=== PATIENT | male | born 1945 | race Caucasian/White ===

== ENCOUNTER 2017-01-31 17:53 | Inpatient (IN) | payer OTHER ==
[~2017-01-31 17:53] MED LIST: GADOBUTROL 10 ML VIAL IVP ONE
[2017-01-31] MEDS ORDERED: DEXAMETHASONE 10 MG/ML VIAL IVP ONE (18:16)
--- NOTE | 2017-01-31 18:22 | EDPHY ---
H & P Stated Complaint: increasing size of brain tumor Time Seen by Provider: 01/31/17 17:55 HPI/ROS: CHIEF COMPLAINT: Confusion HISTORY OF PRESENT ILLNESS: The patient is a 72-year-old man who was referred from [facility] from the MRI machine. 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 Over the last week his family has noticed increased confusion. He was sent by Dr. Xavier for an MRI today on which they have noticed a temporal mass double in size from previous with significant edema and some midline shift. He was told to come here and get Decadron. He denies headache, he denies seizures. REVIEW OF SYSTEMS: Constitutional: denies: chills, fever, recent illness, recent injury EENTM: denies: blurred vision, double vision, nose congestion Respiratory: denies: cough, shortness of breath Cardiac: denies: chest pain, irregular heart rate, lightheadedness, palpitations Gastrointestinal/Abdominal: denies: abdominal pain, diarrhea, nausea, vomiting, blood streaked stools Genitourinary: denies: dysuria, frequency, hematuria, pain Musculoskeletal: denies: joint pain, muscle pain Skin: denies: lesions, rash, jaundice, bruising Neurological: See HPI denies: headache, numbness, paresthesia, tingling, dizziness, weakness Hematologic/Lymphatic: denies: blood clots, easy bleeding, easy bruising Immunologic/allergic: denies: HIV/AIDS, transplant EXAM: GENERAL: Well-appearing, well-nourished and in no acute distress. HEAD: Atraumatic, normocephalic. EYES: Pupils equal round and reactive to light, extraocular movements intact, sclera anicteric, conjunctiva are normal. ENT: TMs normal, nares patent, oropharynx clear without exudates. Moist mucous membranes. NECK: Normal range of motion, supple without lymphadenopathy or JVD. LUNGS: Breath sounds clear to auscultation bilaterally and equal. No wheezes rales or rhonchi. HEART: Regular rate and rhythm without murmurs, rubs or gallops. ABDOMEN: Soft, nontender, normoactive bowel sounds. No guarding, no rebound. No masses appreciated. BACK: No CVA tenderness, no spinal tenderness, step-offs or deformities EXTREMITIES: Normal range of motion, no pitting or edema. No clubbing or cyanosis. 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 Baseline speech, normal gait. 5/5 strength, normal movement in all extremities, normal sensation PSYCH: Normal mood, normal affect. SKIN: Warm, dry, normal turgor, no visible rashes or lesions. Source: Patient Exam Limitations: No limitations - Medical/Surgical History Hx Asthma: No Hx Chronic Respiratory Disease: No Hx Diabetes: No Hx Cardiac Disease: Yes Hx Renal Disease: No Hx Cirrhosis: No Hx Alcoholism: No Hx HIV/AIDS: No Hx Splenectomy or Spleen Trauma: No Other PMH: CABG-X2; 2012;. 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;HTN;Arthritis - Family History Significant Family History: No pertinent family hx - Social History Smoking Status: Never smoked Alcohol Use: Sober Drug Use: None Constitutional: Initial Vital Signs Temperature (C) 36.8 C 01/31/17 18:01 Heart Rate 57 L 01/31/17 18:01 Respiratory Rate 16 01/31/17 18:01 Blood Pressure 152/76 H 01/31/17 18:01 O2 Sat (%) 89 L 01/31/17 18:01 O2 Delivery Mode Room Air Allergies/Adverse Reactions: Jgdqagd-Pah-Gdb Reductase Inhibitor Allergy (Verified 08/23/16 11:51) Home Medications: Medication Instructions Recorded Cholecalciferol (Vitamin D3) 2,000 unit PO DAILY 07/10/12 [Vitamin D-3] Pantoprazole Sodium [Protonix 40mg 40 mg PO BID 07/10/12 (*)] Zolpidem Tartrate [Ambien 5MG (*)] 10 mg PO HS PRN 07/10/12 Cyanocobalamin [Vitamin B12 (*)] 1,000 mcg PO DAILY 08/23/16 Dexamethasone [Decadron 2 MG (*)] 2 mg PO DAILY 08/23/16 Herbals/Supplements -Info Only 1 each PO DAILY 08/23/16 Hydrocodone/APAP 5/325 [[place] 1 tab PO HS PRN 08/23/16 5/325 (*)] Ramipril [Altace 5mg (*)] 10 mg PO DAILY 08/23/16 traMADol [Ultram 50 mg (*)] 50 mg PO DAILY PRN 08/23/16 Metoprolol Tartrate [Lopressor 50 50 mg PO TID #90 tab 08/26/16 mg (*)] Medical Decision Making - Diagnostics EKG Interpretation: An EKG obtained and was read and documented in trace view. Please see trace view for full reading and report. Sinus rhythm, no acute ischemic changes or arrhythmias Imaging Results: Imaging Impressions Brain MRI 01/31/17 17:00 Impression: 1. Right temporal lobe ring-enhancing metastasis, measuring 4 x 2.5 x 3 cm, is increased in size, with increasing vasogenic edema, resulting in leftward subfalcine herniation, 7 mm of left midline shift. 2. Right cerebellar subcentimeter enhancing metastasis again noted, similar in size. 3. No acute infarct or hydrocephalus. Findings and recommendations discussed with Dian Church N.P., at 1734 hours, on January 31, 2017. Final report concurs with initial preliminary interpretation. E:amm A test result has been communicated to a licensed care provider and documented in the [facility] Critical Result system on 01/31/2017 18:04, Message ID [id number]. ED Course/Re-evaluation: 6:25 p.m. I discussed the case with Dr. Murillo and then with Dr. Benavides from Neurosurgery and with Dr. Vishal melendrez. Dr. melendrez will admit to the hospital service and Neurosurgery will consult the morning. Oncology requests Decadron at this time. The would like to hold off on Keppra. Differential Diagnosis: Partial list of the Differential diagnosis considered include but were not limited to; intracranial tumor, edema, infection and although unlikely based on the history and physical exam, I also considered trauma. Critical Care Time: Critical care time spent by me, Dr. Miranda exclusive with this patient was 35 minutes, exclusive of the PA time exclusive of procedures. The organ system that was at risk was neurologic and I gave labs, steroids, consultation and admission to prevent worsening of the patient's condition - Data Points Medications Given: Discontinued Medications Dexamethasone (Decadron Injection) 10 mg IVP EDNOW ONE Stop: 01/31/17 18:17 Last Admin: 01/31/17 18:38 Dose: 10 mg Departure - Departure Disposition: [facility] Inpatient Acute Clinical Impression: Intracranial mass Condition: Fair
[2017-01-31 18:44] LABS: % IMMATURE GRANULYOCYTES 0.6 % (0.0-1.1); ABSOLUTE IMMATURE GRANULOCYTES 0.06 10^3/uL (0.00-0.10); ADD DIFF? NO; ADD MORPH? NO; ADD SCAN? NO; ATYPICAL LYMPHOCYTE FLAG 0 (0-99); FRAGMENT RBC FLAG 0 (0-99); HEMATOCRIT 45.7 % (40.0-51.0); HEMOGLOBIN 15.7 g/dL (13.7-17.5); LEFT SHIFT FLG 0 (0-99); LIPEMIA HEMOLYSIS FLAG 90 (0-99); MEAN CELL HEMOGLOBIN 30.3 pg (27.9-34.1); MEAN CELL HEMOGLOBIN CONCENTR. 34.4 g/dL (32.4-36.7); MEAN CELL VOLUME 88.2 fL (81.5-99.8); PLATELET CLUMPS FLAG 0 (0-99); PLATELET COUNT 220 10^3/uL (150-400); RED BLOOD CELL COUNT 5.18 10^6/uL (4.40-6.38); RED CELL DISTRIBUTION WIDTH 13.2 % (11.5-15.2)
--- NOTE | 2017-01-31 18:50 | CPEKG ---
Heart Rate: 51 RR Interval: 1176 P-R Interval: 156 QRSD Interval: 86 QT Interval: 476 QTC Interval: 439 P [place]: 61 QRS [place]: -16 T Wave [place]: 35 EKG Severity - OTHERWISE NORMAL ECG - EKG Impression: SINUS RHYTHM EKG Impression: BORDERLINE LEFT AXIS DEVIATION Electronically Signed By: Louis Miranda 31-Jan-2017 18:52:49
[2017-01-31 18:51] LABS: ANION GAP 9 mEq/L (8-16); CALCIUM 9.4 mg/dL (8.5-10.4); CARBON DIOXIDE 26 mEq/l (22-31); CHLORIDE 106 mEq/L (97-110); CREATININE 0.9 mg/dL (0.7-1.3); GLOMERULAR FILTRATION RATE > 60; GLUCOSE 94 mg/dL (70-100); POTASSIUM 3.8 mEq/L (3.5-5.2); SODIUM 141 mEq/L (134-144)
[2017-01-31] MEDS ORDERED: ONDANSETRON DISINTEGRATING 4 MG TAB PO PRN (19:24)
[2017-01-31] MEDS ORDERED: ONDANSETRON 4 MG/2 ML VIAL IVP PRN (19:24)
[2017-01-31] MEDS ORDERED: NS 1,000 ML IV SCH (19:30)
--- NOTE | 2017-01-31 20:02 | GHP ---
[f rep st] HISTORY AND PHYSICAL DATE OF ADMISSION: 01/31/2017 CHIEF COMPLAINT: Enlarging intracranial mass. HISTORY OF PRESENT ILLNESS: This is a 72-year-old man with metastatic parotid/valve or salivary gla nd tumor. He had known metastases to his brain and lung. Over the last week, he has been slightly more confused. He denies any headaches, focal weakness or numbness. He has had no falls recently. He is still ambulating. He was brought into [facility] today for hydration, as w ell as antiemetics. He also got an MRI which showed an enlarging temporal lobe mass. Because of th at, he was sent to the ED. He is accompanied by his and son. PAST MEDICAL/SURGICAL HISTORY: 1. 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 2. Coronary artery disease, status post CABG. 3. Hypertension. 4. Hyperlipidemia. 5. Paroxysmal atrial fibrillation due to tumor compressing on part of his heart per his . MEDICATIONS: Please see medication reconciliation. ALLERGIES: Statins. FAMILY HISTORY: None pertinent. SOCIAL HISTORY: Never smoked. Does not drink alcohol. Does not use drugs. REVIEW OF SYSTEMS: A 10-point review of systems is conducted and is negative except per HPI. PHYSICAL EXAMINATION: VITAL SIGNS: Blood pressure 152/76, heart rate 57, respiration rate 16, satu rating 89% on room air. Temperature is 36.8. GENERAL: The patient is a pleasant man who is lying in bed, appears comfortable. HEENT: Shows him to be status post large right-sided parotid gland re section with scar extending up into his scalp, as well as down into his neck. CARDIOVASCULAR: Exam shows a regular rate and rhythm with a 1/6 systolic murmur. PULMONARY: Exam shows lungs clear to auscultation bilaterally. ABDOMEN: Soft, nontender, nondistended. SKIN: Shows no rash. : Exa m shows no Castillo. NEUROLOGIC: Exam shows him to be alert and oriented x3. He has a right-sided fa cial droop due to facial nerve injury. He has a hoarse voice. Motor and sensation are intact in hi s upper and lower extremities. PSYCHIATRIC: Exam shows normal mood and affect. LABORATORY DATA: White count is 9.6. Basic metabolic panel is normal. DATA: 1. ECG, which I personally viewed and interpreted, shows sinus rhythm. 2. Brain MRI, which I personally viewed and interpreted, shows a right-sided temporal mass with sig nificant vasogenic edema with some mild midline shift. 3. I discussed this with Dr. Miranda. Will admit to med/surg. IMPRESSION/PLAN: A 72-year-old man with known metastatic parotid gland cancer who presents with wor sening intracranial metastatic disease. 1. Parotid gland cancer with metastases to lung with worsening intracranial metastases: Appreciate Neurosurgery and Oncology assistance. Will provide Decadron overnight. We will hold off on antiep ileptics at this point per Dr. Grigsby's recommendation. He and his are aware of his overall pr ognosis. They would be open to discussing with Palliative Care; however, per his , they would j ust like to get him home first. 2. Coronary artery disease, status post coronary artery bypass graft: We will continue his medicat ions. Will hold aspirin at this time. 3. Atrial fibrillation: This is paroxysmal per his . She tells me that this is due to tumor c ompressing his " maker artery." I do not think there is anything to do about this right now; lauren bynum is currently in sinus. 4. Previous reaction to steroids: He became very agitated in the past. He takes Valium occasional ly at home. I have added this to his med list. 5. Code status: He is do not resuscitate. 6. Venous thromboembolism risk is high; however, with the enlarging intracranial mass, we will just use SCDs. /[id number]/MODL
[2017-01-31] MEDS: oxyCODONE IR 5 MG TAB PO PRN (23:23)
[2017-01-31] MEDS: DEXAMETHASONE 4 MG/ML VIAL IVP SCH (23:23)
[2017-02-01 05:17] LABS: ALANINE AMINOTRANSFERASE 26 IU/L (21-72); ALBUMIN 3.9 g/dL (3.5-5.0); ALKALINE PHOSPHATASE 79 IU/L (38-126); ANION GAP 12 mEq/L (8-16); ASPARTATE AMINOTRANSFERASE 19 IU/L (17-59); BILIRUBIN,TOTAL 1.1 mg/dL (0.1-1.4); CALCIUM 9.5 mg/dL (8.5-10.4); CARBON DIOXIDE 22 mEq/l (22-31); CHLORIDE 109 mEq/L (97-110); CREATININE 0.7 mg/dL (0.7-1.3); GLOMERULAR FILTRATION RATE > 60; GLUCOSE 133 mg/dL (70-100); POTASSIUM 4.2 mEq/L (3.5-5.2); SODIUM 143 mEq/L (134-144); TOTAL PROTEIN 6.5 g/dL (6.3-8.2)
[2017-02-01 05:28] LABS: % IMMATURE GRANULYOCYTES 0.5 % (0.0-1.1); ABSOLUTE IMMATURE GRANULOCYTES 0.04 10^3/uL (0.00-0.10); ADD DIFF? NO; ADD MORPH? NO; ADD SCAN? NO; ATYPICAL LYMPHOCYTE FLAG 0 (0-99); FRAGMENT RBC FLAG 0 (0-99); HEMATOCRIT 43.3 % (40.0-51.0); HEMOGLOBIN 15.5 g/dL (13.7-17.5); LEFT SHIFT FLG 10 (0-99); LIPEMIA HEMOLYSIS FLAG 90 (0-99); MEAN CELL HEMOGLOBIN 30.9 pg (27.9-34.1); MEAN CELL HEMOGLOBIN CONCENTR. 35.8 g/dL (32.4-36.7); MEAN CELL VOLUME 86.3 fL (81.5-99.8); MEAN PLATELET VOLUME 11.3 fL (8.7-11.7); PLATELET CLUMPS FLAG 0 (0-99); PLATELET COUNT 224 10^3/uL (150-400); RED BLOOD CELL COUNT 5.02 10^6/uL (4.40-6.38); RED CELL DISTRIBUTION WIDTH 13.2 % (11.5-15.2)
[2017-02-01] MEDS: DEXAMETHASONE 4 MG/ML VIAL IVP SCH ×4 (06:25→23:37)
[2017-02-01] MEDS: fentaNYL 75 MCG PATCH TD SCH (09:55)
[2017-02-01] MEDS: PANTOPRAZOLE SODIUM 40 MG TAB PO SCH ×2 (09:55→20:27)
[2017-02-01] MEDS: CHOLECALCIFEROL VIT D3 1,000 UNITS TAB PO SCH (09:55)
[2017-02-01] MEDS: METOPROLOL TARTRATE 50 MG TAB PO SCH ×2 (09:56→20:27)
[2017-02-01] MEDS: RAMIPRIL 5 MG CAP PO SCH (09:56)
--- NOTE | 2017-02-01 10:50 | SOAPPROG ---
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 of prior brain met, S/P XRT to brain 08/30. now with progressive R temporal lobe met. with significant edema and mass effect. His disease in chest /abdomen has shown response to Pembroluzumab thus far, but his QOL has been poor at home over the past month according to his , Zelda at the bedside today due to facial and chest pain. He has spent most of each day in bed with poor Performance Status sleeping or sedated from analgesic requirements. Discussed merits/hazards of Neurosurgical intervention with patient and his and with Dr. Benavides. He may have good Neurosurgical outcome, but the is concerned that his overall QOL and prognosis may weigh against going forward with Neurosurgical resection. IF patient/family decide against Neurosurgical intervention, then I advise a palliative approach with comfort measures/Hospice referral as alternate to surgery, given his past daily functioning/ limited PS/likelihood of deterioration with limited Prognosis in the event his brain tumor is not Neurosurgically excised. Will check back tomorrow as to patient's status and family's thoughts on direction to take. Continue high dose steroids. Plan:See above discussion. 02/01/17 10:43 Subjective: Stable overnight with IV steroids Objective: VSS, afebrile HEENT- R facial droop, anicteric, no oral lesions Neck- supple Chest- clear CVS- RSR, no extra HS ABD- soft, NT, BS+, No mass or HSM or ascites EXT- benign MRI- R temporal mass 4 x 2.5 x 3 cm with ring edema, smaller R cerebellar mass noted also Vital Signs Temp Pulse Resp BP Pulse Ox 36.7 C 71 16 132/78 H 92 02/01/17 08:59 02/01/17 08:59 02/01/17 08:59 02/01/17 08:59 02/01/17 08:59 Laboratory Results 02/01/17 04:27 02/01/17 04:27 01/31/17 02/01/17 02/02/17 05:59 05:59 05:59 Intake Total 610 Balance 610 ICD10 Worksheet Patient Problems: Problems Problem Status Onset Intracranial mass Acute CAD - Coronary arteriosclerosis Active Essential hypertension Active Familial combined hyperlipidemia Active History of placement of stent for coronary artery disease Active Lightheadedness Acute Near syncope Acute Pneumonia Acute
--- NOTE | 2017-02-01 11:25 | GCON ---
[f rep st] CONSULTATION NEUROSURGERY CONSULTATION CHIEF COMPLAINT: Altered mental status and brain tumor. HISTORY OF PRESENT ILLNESS: The patient is a 72-year-old male patient with known metastatic parotid or salivary gland tumor with known metastases to his brain and his lung. Per the medical record an d the patient's , over the past week he became more confused. He denied any headaches, weakness , or numbness, and was brought to [facility] for hydration and antinausea medicati ons. He underwent an MRI which showed enlarging of his temporal lobe mass, and he was then directed to the emergency room. He has been admitted to the hospitalist service, and the neurosurgery servi ce was subsequently consulted given his brain lesions. Currently, the patient is resting in bed. H is is at the bedside. She states that he has been very tired since his admission and course of events yesterday. She reports that his mentation has cleared somewhat today. He is on steroids at this time. She states that her big hope is to get him home. PAST MEDICAL HISTORY: Includes parotid gland cancer with metastases to the brain and lung status po st CyberKnife treatment, coronary artery disease status post CABG, hypertension, hyperlipidemia, atr ial fibrillation. MEDICATIONS: Please see the medication reconciliation. ALLERGIES: Statins. FAMILY HISTORY: Noncontributory. SOCIAL HISTORY: The patient is a nonsmoker. He does not drink alcohol or use drugs. He is . His is at the bedside. REVIEW OF SYSTEMS: Please see above mentioned in the HPI. PHYSICAL EXAMINATION: VITAL SIGNS: Blood pressure 132/78, heart rate 71, respirations 16, O2 sat i s 92% on room air, temperature is 36.7. GENERAL: This is a well-developed, elderly male patient wh o is in no acute distress. He is resting comfortably in bed. He is sleeping on and off. He does a waken easily and follows commands, although he does have some difficulty when I ask him to perform a motor examination with his arms. He does continue to move his legs instead, so I do think he has s ome confusion going on. 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 He recognizes his and is conversant and is aware that he is here in the [facility]. LABORATORY DATA: White blood cells 8.55, red blood cells 5.02, hemoglobin 15.5, hematocrit 43.3, RD W is 13, and platelet count is 224. Chemistry: Sodium is 143, potassium 4.2, chloride 109, carbon dioxide 22, anion gap 12, BUN 16, creatinine 0.7, GFR greater than 60, glucose 133, calcium 9.5, timi irubin 1.1, AST 19, ALT 26, alk phos 79, protein 6.5, albumin 3.9. IMAGING: MRI of the brain with and without contrast. Impression: Right temporal lobe ring-enhanci ng metastasis measuring 4 x 2.5 x 3 cm has increased in size with increasing vasogenic edema, result ing in leftward subfalcine herniation, 7 mm of left midline shift. Right cerebellar subcentimeter e nhancing metastasis again noted, similar in size. No acute infarct or hydrocephalus. IMPRESSION: This is a 72-year-old male patient with known metastasis to the brain with increase in size of brain lesion and also some increased confusion. PLAN: Dr. Benavides and I have both seen the patient and have discussed treatment options with the lucy ent and his . Dr. Benavides plans to discuss further with the patient's oncologist to discuss overa ll prognosis and to determine if any surgical intervention for this right temporal lobe mass would b e indicated. At this time, we will continue the patient on Decadron 4 mg q.6 hours given the edema seen on imaging. While the patient is here, would have him work with physical therapy, occupational therapy, and also speech therapy. Neurosurgery will continue to follow along with this patient. H e may be discharged home later today; and if that were the case, would have him see us as an outpati ent if he and his family wish to pursue any surgical intervention. Please contact the neurosurgery service with any additional questions or concerns. /[id number]/MODL
--- NOTE | 2017-02-01 14:07 | HOSPPROG ---
Hospitalist Progress Note Assessment/Plan: # Aggressive Parotid Gland tumor -with history of prior brain met -S/P XRT to brain 08/30- presenting with worsening quality of life and confusion per MRI brain (personally reviewed and interpreted) progressive R temporal lobe metastasis- with significant edema and mass effect. His disease in chest/abdomen has shown response to Pembroluzumab - started on dexamethasone - NSG consulting and can provide excision if sdesired - Oncology consulting - family actively deciding on desired course of action - PT/OT and ST appropriate # CAD s/p CABG - currently without complaint- oxygen saturations 92% on RA - creatinine 0.8 - cont home meds - monitor closely # HLD - no meds # proph - lovenox contraindicated in setting of intracranial mass # diet - regular # dispo - > 2MN as requires close monitoring and decisions related to NSG intervention I have discussed the case with NSG and Oncolog - cont dexamethasone now and allow family time for decision making related to surgery Subjective: tired Objective: Vital Signs Temp Pulse Resp BP Pulse Ox 36.6 C 72 16 121/82 H 92 02/01/17 11:31 02/01/17 11:31 02/01/17 11:31 02/01/17 11:31 02/01/17 11:31 Laboratory Results 02/01/17 04:27 02/01/17 04:27 01/31/17 02/01/17 02/02/17 05:59 05:59 05:59 Intake Total 610 Balance 610 - Physical Exam Constitutional: chronically ill appearing Eyes: anicteric sclera Ears, Nose, Mouth, Throat: dry mucous membranes Cardiovascular: regular rate and rhythym Respiratory: no respiratory distress, no rales or rhonchi Gastrointestinal: normoactive bowel sounds, soft, non-tender abdomen Genitourinary: no bladder fullness Skin: warm, normal color Musculoskeletal: No asymmetric calves Neurologic: AAOx3 Psychiatric: depressed, flat affect Lymph, Heme, Immunologic: no cervical LAD ICD10 Worksheet Patient Problems: Problems Problem Status Onset Intracranial mass Acute CAD - Coronary arteriosclerosis Active Essential hypertension Active Familial combined hyperlipidemia Active History of placement of stent for coronary artery disease Active Lightheadedness Acute Near syncope Acute Pneumonia Acute
[2017-02-01] MEDS: traMADol 50 MG TAB PO PRN (20:35)
[2017-02-02 07:52] LABS: HEMATOCRIT 40.8 % (40.0-51.0); HEMOGLOBIN 14.4 g/dL (13.7-17.5); MEAN CELL HEMOGLOBIN 30.7 pg (27.9-34.1); MEAN CELL HEMOGLOBIN CONCENTR. 35.3 g/dL (32.4-36.7); RED BLOOD CELL COUNT 4.69 10^6/uL (4.40-6.38); RED CELL DISTRIBUTION WIDTH 13.2 % (11.5-15.2)
[2017-02-02] MEDS: DEXAMETHASONE 4 MG/ML VIAL IVP SCH ×3 (08:13→17:37)
--- NOTE | 2017-02-02 09:51 | NEUSURGPN ---
Assessment/Plan: A: 72 yo M with metastatic parotid tumor with enlarging right temporal metastasis Plan: -Dr Benavides and oncology met with pt yesterday to discuss options. After careful consideration pt and his would like to pursue surgery which would entail right sided craniotomy for tumor resection/debulking -Will need medical/cardiac clearance -Once cleared will determine timing for surgery -Continue decadron 4mg Q6 hours -Continue PT/OT/TOWER ATTENDANT -D/w Dr Benavides -Please call NS with any questions or neuro changes Subjective: Pt resting in bed, at bedside. They wish to schedule surgery Objective: AAOx3 NAD VSS MAEx4 CN II - XII grossly intact Urinary Catheter in Place: No - Physician Discussed Patient with : [facility] Physical Exam - Vitals, I&O, Labs I and O 02/01/17 02/02/17 02/03/17 05:59 05:59 05:59 Other: Intake Quantity Yes Sufficient Vital Signs Temp Pulse Resp BP Pulse Ox 36.3 C 78 14 151/99 H 91 L 02/02/17 08:14 02/02/17 08:14 02/02/17 08:14 02/02/17 08:14 02/02/17 08:14 Laboratory Results 02/02/17 04:33 ICD10 Worksheet Patient Problems: Problems Problem Status Onset Intracranial mass Acute CAD - Coronary arteriosclerosis Active Essential hypertension Active Familial combined hyperlipidemia Active History of placement of stent for coronary artery disease Active Lightheadedness Acute Near syncope Acute Pneumonia Acute
[2017-02-02] MEDS: CHOLECALCIFEROL VIT D3 1,000 UNITS TAB PO SCH (10:06)
[2017-02-02] MEDS: METOPROLOL TARTRATE 50 MG TAB PO SCH ×2 (10:07→21:54)
[2017-02-02] MEDS: RAMIPRIL 5 MG CAP PO SCH (10:07)
[2017-02-02] MEDS: PANTOPRAZOLE SODIUM 40 MG TAB PO SCH ×2 (10:08→21:54)
[2017-02-02] MEDS: levETIRAcetam 500 MG TAB PO SCH ×2 (10:11→21:54)
[2017-02-02] MEDS: traMADol 50 MG TAB PO PRN (10:17)
[2017-02-02] MEDS: oxyCODONE IR 5 MG TAB PO PRN (10:17)
[2017-02-02] MEDS ORDERED: BISACODYL 10 MG SUPP PR PRN (10:36)
[2017-02-02] MEDS ORDERED: MAGNESIUM HYDROXIDE 30 ML UDCUP PO PRN (10:36)
[2017-02-02] MEDS ORDERED: LACTULOSE 20 GM/30 ML UDCUP PO PRN (10:36)
--- NOTE | 2017-02-02 13:09 | HOSPPROG ---
Hospitalist Progress Note Assessment/Plan: # Aggressive Parotid Gland tumor -with history of prior brain met -S/P XRT to brain 08/30- presenting with worsening quality of life and confusion per MRI brain -progressive R temporal lobe metastasis- with significant edema and mass effect. His disease in chest/abdomen has shown response to Pembroluzumab - cont dexamethasone IV - patient desiring resection - NSG tentatively scheduled for 02/04 - Oncology following - PT/OT and ST appropriate # CAD s/p CABG - currently without complaint- oxygen saturations 91% on RA - EKG (personally reviewed and interpreted) sinus leftward axis deviation no acute changes - cont home meds - monitor closely # leukocytosis - 16 this am suspect 2/2 dexamethasone # HLD - no meds # proph - lovenox contraindicated in setting of intracranial mass # diet - regular # dispo - > 2MN as requires close monitoring and decisions related to NSG intervention I have discussed the case with RN - pt responding well to steroids - continue bowel regimen while on narcotics Subjective: thinking much more clearly Objective: Vital Signs Temp Pulse Resp BP Pulse Ox 36.3 C 78 14 151/99 H 91 L 02/02/17 08:14 02/02/17 10:07 02/02/17 08:14 02/02/17 10:07 02/02/17 08:14 Laboratory Results 02/02/17 04:33 - Physical Exam Constitutional: chronically ill appearing Eyes: anicteric sclera Ears, Nose, Mouth, Throat: moist mucous membranes Cardiovascular: regular rate and rhythym Respiratory: no respiratory distress, no rales or rhonchi Gastrointestinal: normoactive bowel sounds, soft, non-tender abdomen Genitourinary: no bladder fullness Skin: warm, normal color Musculoskeletal: No asymmetric calves Neurologic: AAOx3 Psychiatric: interacting appropriately, depressed Lymph, Heme, Immunologic: no cervical LAD ICD10 Worksheet Patient Problems: Problems Problem Status Onset Intracranial mass Acute CAD - Coronary arteriosclerosis Active Essential hypertension Active Familial combined hyperlipidemia Active History of placement of stent for coronary artery disease Active Lightheadedness Acute Near syncope Acute Pneumonia Acute
[2017-02-02] MEDS: SENNOSIDES/DOCUSATE SODIUM TAB PO SCH (23:03)
[2017-02-03] MEDS: ZOLPIDEM TARTRATE 5 MG TAB PO PRN ×2 (01:15→23:03)
[2017-02-03] MEDS: DEXAMETHASONE 4 MG/ML VIAL IVP SCH ×5 (01:15→22:52)
--- NOTE | 2017-02-03 07:44 | SOAPPROG ---
SOAP Progress Note Assessment/Plan: Assessment: 72 yo M with progressive right temporal and cerebellar met, likely parotid tumor Plan: neuro: stable, patient spoke with and son, they would like to move forward with surgery Dr Benavides will try to add on for am of 02/04/17 PT/OT/ST on keppra on decadron please call with neuro changes discussed with Dr Benavides 02/03/17 07:41 Subjective: no headaches, no N/V. Objective: Vital Signs Temp Pulse Resp BP Pulse Ox 37.0 C 68 17 115/65 95 02/02/17 23:22 02/02/17 23:22 02/02/17 23:22 02/02/17 23:22 02/02/17 23:22 Laboratory Results 02/02/17 04:33 02/02/17 02/03/17 02/04/17 05:59 05:59 05:59 Intake Total 1100 Balance 1100 Awake, slow to respond to questions right sided facial droop ABHIJIT x 4 + light touch ICD10 Worksheet Patient Problems: Problems Problem Status Onset Intracranial mass Acute CAD - Coronary arteriosclerosis Active Essential hypertension Active Familial combined hyperlipidemia Active History of placement of stent for coronary artery disease Active Lightheadedness Acute Near syncope Acute Pneumonia Acute
--- NOTE | 2017-02-03 10:04 | HOSPPROG ---
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 His disease in chest/abdomen has shown response to Pembroluzumab - cont dexamethasone IV - patient desiring resection - NSG tentatively scheduled for 02/04 - Oncology following - PT/OT and ST appropriate -Avoid sedatives if possible and consider stimulants if not waking up if ok with neurosurgery # CAD s/p CABG - currently without complaint- oxygen saturations 91% on RA - - cont home meds - monitor closely # leukocytosis on 02/02 likely due to 2/2 dexamethasone -continue to monitor for signs of infection # HLD - no meds # proph - lovenox contraindicated in setting of intracranial mass # diet - regular # dispo - > 2MN as requires close monitoring and decisions related to NSG intervention I have discussed the case with RN Subjective: had a lucid moment last night when he told he would like to proceed with surgery, but would not want to continue living in his current condition. He received a dose of ambien last night and has been hard to arouse since. Objective: Vital Signs Temp Pulse Resp BP Pulse Ox 36.6 C 65 18 140/82 H 95 02/03/17 07:47 02/03/17 07:47 02/03/17 07:47 02/03/17 07:47 02/03/17 07:47 Laboratory Results 02/02/17 04:33 02/02/17 02/03/17 02/04/17 05:59 05:59 05:59 Intake Total 1100 Balance 1100 gen hard to arouse but appears comfortable cv rrr pulm clear no wheeze/rales/ronchi abd soft +bs no guard or rebound ext no edema ICD10 Worksheet Patient Problems: Problems Problem Status Onset CAD - Coronary arteriosclerosis Active History of placement of stent for coronary artery disease Active Familial combined hyperlipidemia Active Essential hypertension Active Lightheadedness Acute Pneumonia Acute Near syncope Acute Intracranial mass Acute
[2017-02-03] MEDS: METOPROLOL TARTRATE 50 MG TAB PO SCH ×2 (10:14→20:33)
[2017-02-03] MEDS: levETIRAcetam 500 MG TAB PO SCH ×2 (10:29→20:32)
[2017-02-03] MEDS: CHOLECALCIFEROL VIT D3 1,000 UNITS TAB PO SCH (10:33)
[2017-02-03] MEDS: PANTOPRAZOLE SODIUM 40 MG TAB PO SCH ×2 (10:33→20:32)
[2017-02-03] MEDS: RAMIPRIL 5 MG CAP PO SCH (10:36)
[2017-02-03] MEDS: SENNOSIDES/DOCUSATE SODIUM TAB PO SCH ×2 (10:37→20:32)
--- NOTE | 2017-02-03 14:46 | SOAPPROG ---
SOAP Progress Note Assessment/Plan: Assessment: 1. 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 I wonder if temporal met could be causing his pain, as noted his disease systemically has been under good control on immunotherapy. 02/03/17 14:43 Subjective: Drowsy but arousable Objective: Vital Signs Temp Pulse Resp BP Pulse Ox 97.8 F 44 L 18 140/82 H 95 02/03/17 07:47 02/03/17 10:14 02/03/17 07:47 02/03/17 10:36 02/03/17 07:47 Laboratory Results 02/02/17 04:33 02/02/17 02/03/17 02/04/17 05:59 05:59 05:59 Intake Total 1100 Balance 1100 ICD10 Worksheet Patient Problems: Problems Problem Status Onset Intracranial mass Acute CAD - Coronary arteriosclerosis Active Essential hypertension Active Familial combined hyperlipidemia Active History of placement of stent for coronary artery disease Active Lightheadedness Acute Near syncope Acute Pneumonia Acute
--- NOTE | 2017-02-03 15:27 | GCON ---
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 He underwent a total parotidectomy with neck dissection in [address] 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 He underwent a couple reinnervation procedures, including a gold weight implant on the right upper eyelid, a brow lift on the right side, as well as a mini right facelift to help with the symmetry. He came in as a referral from [facility] secondary to having an MRI that showed increasing size of a right temporal lobe mass with significant edema and midline shift. The family states that he has been having some increased confusion and lethargy. Neurosurgery was consulted, and Dr. Benavides is planning on doing a resection of this metastasis tomorrow. I was consulted secondary to his approach in relation to a lot of the previous right-sided surgery that he has had. On discussion with the patient, he also has a very breathy, hoarse voice, and they state that he was found to have some lung mets that were found secondary to a decrease in his voice. This basically ended up showing a vocal cord paralysis, and ever since, he has had significant hoarseness and has trouble communicating. He also states he gets shortness of breath when he talks a lot. He denies overt dysphagia. PAST MEDICAL HISTORY: Significant for the above. He has also had radiation therapy. ALLERGIES: None. REVIEW OF SYSTEMS: He denies any significant pain, and he does complain of the other HPI complaints. PHYSICAL EXAM: GENERAL: He is awake, alert, in no apparent distress. 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 He has a gold weight implant on the right upper lid, which allows him to close the eye fully. He also has multiple scars along the right side of the face including a previous parotidectomy incision, a brow lift incision, as well as incisions down into the neck. He also has a defect where the right parotid was. His ears are clear with TMs that are intact. No hemotympanum or middle ear effusion. Nose shows collapse of the right nare, but otherwise is symmetric. Oral cavity and oropharynx shows a tongue that is mobile. Palate elevates symmetrically. NECK: Shwos some post radiation changes as well as surgical changes, but no overt neck masses. PROCEDURE: A flexible fiberoptic laryngoscopy was performed after spraying about 1 cc of oxymetazoline and lidocaine into the bilateral nares. Once this had sufficient time to act, the scope was placed through the left nare showing a normal left nasal cavity and nasopharynx. Oropharynx was symmetric. The vallecula was clear. Vocal cords show complete mobility of the right side, but complete immobility of the left side. This leaves him with a fairly large gap. Hypopharynx is without pooling or secretions. Otherwise, exam is clear. The scope was removed. He tolerated this procedure well. 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 He has some metastases to the brain and is undergoing surgery to remove the temporal lobe mass tomorrow. I do not think that the temporal approach is going to cause any problems. He is already completely paralyzed on the right side, and it would be fine to use the same incision, if Dr. Benavides would like. I do think that while he is in surgery, it would be reasonable to go ahead and do a vocal cord injection on that left side, and I talked to the family about this. I think this would help his quality of life significantly to help him communicate better , as well as feel less short of breath when he is talking. They do want to go ahead and proceed with this, so informed consent was obtained, and this was placed in the chart. I talked to Dr. Benavides, and I will go ahead and do this at the same time that he is asleep for the temporal lobe resection. All questions were answered. If you have any further questions, please let me know. /[id number]/MODL MTDD
[2017-02-03] MEDS: traMADol 50 MG TAB PO PRN (20:32)
[2017-02-03] MEDS ORDERED: GADOBUTROL 10 ML VIAL IVP ONE (20:49)
[2017-02-03] MEDS: NS W/ 20 KCl/L 1,000 ML IV SCH (22:51)
[2017-02-04] MEDS: DEXAMETHASONE 4 MG/ML VIAL IVP SCH (05:27)
--- NOTE | 2017-02-04 05:47 | NEUSURGPN ---
Assessment/Plan: Assessment: 72 yo M with progressive right temporal and cerebellar met, likely parotid tumor Plan: neuro: stable, Will have surgery this morning with Dr. Benavides for resection of tumor Stealth MRI completed Marked for surgery Preop orders in Labs reviewed- High WBC count this morning- 16 PT/OT/ST on keppra on decadron please call with neuro changes discussed with Dr Benavides Subjective: No new events. Patient ready for surgery. Objective: VSS, NAD, Right sided facial droop PERRl, EOMI DUGGAN X 4 Speech- fluent but raspy - Physician Discussed Patient with Dr.: Benavides Patient Seen by Dr.: Benavides Neurosurgery Physical Exam - Vitals, I&O, Labs I and O 02/02/17 02/03/17 02/04/17 05:59 05:59 05:59 Intake Total 1100 485 Output Total 500 Balance 1100 -15 Intake: Oral (ml) 1100 IV Intake (ml) 485 Output: Urine (ml) 500 Toilet 500 Other: Intake Quantity Yes Sufficient Number of Voids Toilet 1 Vital Signs Temp Pulse Resp BP Pulse Ox 36.4 C 52 L 16 119/61 93 02/04/17 00:00 02/04/17 00:00 02/04/17 00:00 02/04/17 00:00 02/04/17 00:00 Laboratory Results 02/02/17 04:33 ICD10 Worksheet Patient Problems: Problems Problem Status Onset Intracranial mass Acute CAD - Coronary arteriosclerosis Active Essential hypertension Active Familial combined hyperlipidemia Active History of placement of stent for coronary artery disease Active Lightheadedness Acute Near syncope Acute Pneumonia Acute
[2017-02-04] MEDS ORDERED: BUPIVACAINE/EPI 0.25% 30 ML SDV ONE (06:47)
[2017-02-04] MEDS ORDERED: SURGIFLO MATRIX KIT WITH THROMBIN TP ONE (06:49)
[2017-02-04] MEDS ORDERED: AVITENE POWDER 1 GM JAR TP ONE (06:50)
[2017-02-04] MEDS ORDERED: GENTAMICIN SULFATE 80 MG/2 ML VIAL ONE (06:50)
[2017-02-04] MEDS ORDERED: THROMBIN (BOVINE) 5,000 UNIT VIAL TP ONE ×2 (06:50→07:18)
[2017-02-04] MEDS ORDERED: MANNITOL 20% 100 GM/500 ML BAG IV ONE (06:50)
[2017-02-04] MEDS ORDERED: BACITRACIN 50,000 UNITS/10 ML SYR IRR ONE (07:01)
[2017-02-04] MEDS ORDERED: CEFAZOLIN 2 GM/DEXTROSE/100 ML BAG IV ONE (07:09)
[2017-02-04] MEDS ORDERED: MIDAZOLAM 2 MG/2 ML VIAL ONE (07:09)
[2017-02-04] MEDS ORDERED: PROPOFOL 200 MG/20 ML VIAL ONE ×2 (07:11→10:49)
[2017-02-04] MEDS ORDERED: fentaNYL 250 MCG/5 ML INJ ONE ×2 (07:11→08:34)
[2017-02-04] MEDS ORDERED: levETIRAcetam 750 MG in NS 100 ML IV ONE (09:00)
[2017-02-04 09:02] LABS: BASE EXCESS -0.8 mEq/L (-2.5-2.5); BICARBONATE 22 mEq/L (22-26); MEASURED OXYGEN SATURATION 100 % (92-95); PCO2 34 mmHg (34-38); PO2 224 mmHg (65-75); TCO2 23 mEq/L (23-27)
[2017-02-04] MEDS ORDERED: ROCURONIUM 50 MG/5 ML VIAL ONE ×2 (10:52→10:59)
[2017-02-04] MEDS ORDERED: OXYCODONE/APAP 5/325 TAB PO PRN (10:57)
[2017-02-04] MEDS ORDERED: FLUCONAZOLE 150 MG TAB PO ONE (10:57)
[2017-02-04] MEDS ORDERED: HYDROCODONE/APAP 10/325 TAB PO PRN (10:57)
[2017-02-04] MEDS ORDERED: ESMOLOL HCL 100 MG/10 ML VIAL IV ONE (10:59)
[2017-02-04] MEDS ORDERED: ONDANSETRON 4 MG/2 ML VIAL ONE (10:59)
[2017-02-04] MEDS ORDERED: LIDOCAINE 2% 5 ML SDV ONE (10:59)
[2017-02-04] MEDS ORDERED: *MD ORDERING ONLY-DEXAMETHASONE TAPER PO SCH (11:00)
[2017-02-04] MEDS ORDERED: DEXAMETHASONE 4 MG/ML VIAL ONE ×3 (11:03)
--- NOTE | 2017-02-04 11:18 | POSTOPPROG ---
Post Op Note Date of Operation: 02/04/17 Surgeon: Donny Benavides Dorr Operator: Latha Pruitt PA-C Anesthesia: GET(General Endotracheal) Pre-op Diagnosis: Right temporal brain tumor. Likely metastatic Post-op Diagnosis: Same Procedure: Right temporal craniotomy for resection for right temporal brain tumor Inf/Abcess present in the surg proc area at time of surgery?: No EBL: 50-100 Complications: None SOAP Progress Note Assessment/Plan: S: Patient in ICU. Stable O: VSS, NAD PERRL, EOMI right facial droop- same as preop DUGGAN X4 Incision c/d/i Assessment: 72 yo M with progressive right temporal and cerebellar met, likely parotid tumor. S/P right temporal craniotomy for resection of right temporal brain tumor. Also had vocal cord injection by ENT after craniotomy. Plan: -Admit to ICU -Postop MRI in the am -Decadron taper- 14 day -On Keppra -PT/OT/DIRECTOR OF SAFETY -Final path pending -Diflucan X [address] Andres ENT -DVT prophy: TEDs, SCDs, Lovenox ok POD #3 02/04/17 11:14 Objective: Vital Signs Temp Pulse Resp BP Pulse Ox 36.8 C 52 L 16 135/74 H 91 L 02/04/17 05:48 02/04/17 05:48 02/04/17 05:48 02/04/17 05:48 02/04/17 05:48 Laboratory Results 02/02/17 04:33 02/03/17 02/04/17 02/05/17 05:59 05:59 05:59 Intake Total 1100 485 Output Total 700 300 Balance 1100 -215 -300
[2017-02-04] MEDS: METOPROLOL TARTRATE 50 MG TAB PO SCH ×2 (11:24→19:56)
[2017-02-04] MEDS: fentaNYL 75 MCG PATCH TD SCH ×2 (11:24→16:13)
[2017-02-04] MEDS: levETIRAcetam 500 MG TAB PO SCH ×2 (11:24→19:55)
[2017-02-04] MEDS: PANTOPRAZOLE SODIUM 40 MG TAB PO SCH ×2 (11:24→19:57)
[2017-02-04] MEDS: RAMIPRIL 5 MG CAP PO SCH (11:24)
[2017-02-04] MEDS: CHOLECALCIFEROL VIT D3 1,000 UNITS TAB PO SCH (11:24)
[2017-02-04] MEDS: SENNOSIDES/DOCUSATE SODIUM TAB PO SCH ×2 (11:25→19:55)
[2017-02-04] MEDS ORDERED: fentaNYL 100 MCG/2 ML INJ ONE ×3 (11:39→12:34)
[2017-02-04] MEDS ORDERED: LABETALOL HCL 50 MG/10 ML SYR ONE (12:56)
--- NOTE | 2017-02-04 13:50 | GCON ---
[f rep st] CONSULTATION DATE OF CONSULTATION: 02/04/2017 PREOPERATIVE DIAGNOSES: 1. Dysphonia. 2. Paralysis of the left vocal fold. 3. Metastatic parotid squamous cell carcinoma. POSTOPERATIVE DIAGNOSES: 1. Dysphonia. 2. Paralysis of the left vocal fold. 3. Metastatic parotid squamous cell carcinoma. PROCEDURE: Direct microlaryngoscopy with injection laryngoplasty on the left. ANESTHESIA: General. COMPLICATIONS: None. BLOOD LOSS: Minimal. FINDINGS: Patient is found to have an atrophic and bowed left true vocal fold. This was bulked up using Prolaryn Plus 1 cc and looks significantly improved postoperatively. DESCRIPTION OF PROCEDURE: Patient was first seen in the preoperative area where informed consent was obtained. He was then brought back to the operating room, where Anesthesia sedated and intubated him. Dr. Jennings performed a temporal lobe resection initially, and once his portion of the procedure was done, I was called in for my portion. Anesthesia changed out the tube from a size 7 to a size 5-1/2 prior to me doing the injection. After this was done, the bed was turned 90 degrees. He was prepped and draped in a normal fashion. First a Isidro-Leslie retractor was used to try to visualize the oropharynx and hypopharynx. He had a very anterior larynx, and he cannot extend his neck very much, so it was a difficult visualization. At this point, I removed the Isidro-Leslie laryngoscope and replaced this with an anterior commissure one. This was used to gain access to the larynx, and after some manipulation, I was able to visualize the bilateral vocal cords. At this point, the laryngoscope was placed in suspension. The 0 degree Melo jossy was used to evaluate the anatomy with the above-noted findings of a left atrophic and bowed vocal fold. At this point, the Prolaryn Plus injection was primed through the needle, and then under direct visualization using the Melo jossy, the needle was placed just lateral to the vocal fold in the sulcus as the false vocal fold was pushed laterally. This gave me the ability to inject my needle slightly laterally. Again, he did have a very anteriorly displaced larynx, so the trajectory was somewhat difficult. The injection was slightly more posterior than normal, but this was placed just anterior to the vocal fold process, and I began injecting noting good bulking of the left true vocal fold with this injection. I injected the entire 1 cc syringe, and once this was done, the needle was removed. An Afrin-soaked pledget was used to smooth out the vocal fold. At this point, an LTA was placed, and then the Melo jossy was removed. The laryngoscope was then unsuspended and removed. Then the patient was turned back over to Anesthesia where he was awoke, extubated, and taken to PACU in stable condition. There were no complications, and he tolerated the procedure well. /[id number]/MODL MTDD
[2017-02-04] MEDS: NS W/ 20 KCl/L 1,000 ML IV SCH (14:05)
[2017-02-04] MEDS: niCARdipine/NACL 200 ML IV PRN ×2 (14:05→19:53)
--- NOTE | 2017-02-04 15:01 | GOP ---
[f rep st] OPERATIVE REPORT DATE OF OPERATION: 02/04/2017 SURGEON: Donny Benavides MD MYSQL DBA: Latha Pruitt, COLEMAN ANESTHESIA: General endotracheal. PREOPERATIVE DIAGNOSIS: Metastatic parotid squamous cell carcinoma. POSTOPERATIVE DIAGNOSIS: Metastatic parotid squamous cell carcinoma. PROCEDURE PERFORMED: 1. Right temporal craniotomy. 2. Microsurgical gross total resection of right temporal metastatic tumor. 3. Stealth stereotactic neuronavigation for volumetric gross total resection of temporal tumor. 4. Use of the operating microscope. FINDINGS: Successful resection of temporal tumor. SPECIMENS: Right temporal brain tumor for permanent pathology. ESTIMATED BLOOD LOSS: 75 cc. INDICATIONS: The patient is a 72-year-old man who has had a history of metastatic parotid squamous cell carcinoma. He has had a radical neck dissection and has had radiation and chemotherapy. His d isease has been relatively stable for several years, and he has several known brain metastases. How ever, he has been getting more confused, and it was found that over the past 6 months he has had sig nificant growth in a right temporal metastatic lesion with significant surrounding vasogenic edema a nd some midline shift. We discussed extensively in the hospital the opportunity of surgical resecti on versus proceeding with more of a palliative course, and he chose surgical resection. DESCRIPTION OF PROCEDURE: After informed consent was obtained from the patient, the patient was bro ught to the operating room, was placed in supine position on the operating table. A formal time-out was performed, identifying the patient by name, medical record number, and date of . Preopera tive antibiotics were given. The endotracheal tube was placed, and general endotracheal anesthesia was smoothly induced. The patient's head was placed in the Echols pins and turned slightly toward the left side, exposing the right temporal region. The Stealth unit was then registered to the [facility] lp using known surface landmarks and checked for accuracy. The previous incision extending along fr om the root of the zygoma cephalad was marked, and a slight curve at the superior aspect of this inc ision was further marked. The hair was clipped, and the head was then prepped and draped in a melissa l sterile fashion. The skin incision was made using a 10 blade, and the subcutaneous tissues were d issected using monopolar electrocautery. The temporalis muscle and its fascia was opened in line wi th the incision and reflected anteriorly. The root of the zygoma was identified, and the flap allow ed for exposure of the inferior squamous temporal bone. The Stealth was then used to localize the t umor underneath this in the inferior temporal gyrus. A single bur hole was made at the root of the zygoma, and a small 2-1/2 x 2-1/2 cm temporal craniotomy flap was turned using the craniotome. A fe w dural tack-up stitches were placed. The operative microscope was then brought on the field, and t he remainder of the procedure was performed under high-power magnification. The dura was opened in a curvilinear fashion with the base inferiorly, and the inferior temporal sulcus was then carefully dissected under the microscope, preserving the middle temporal gyrus and its arterial branches. As we got to the base of the sulcus, a small corticectomy was made, and further dissection deep allowed for identification of the tumor. The tumor was not particularly well encapsulated or distinct from the surrounding brain tissue, but was certainly harder and more rubbery tissue. A combination of b ipolar electrocautery and ultrasonic aspirator was used to remove the tumor completely. At the dept h of the cavity, the tip of the temporal horn of the lateral ventricle was visualized, and this was carefully preserved with a piece of Gelfoam. We then went around the entire circumference of the tu mor cavity, being sure there was no residual tumor. The margins were checked again with the Stealth to be sure that we had encompassed the entire area that we thought was abnormal. I then inspected each part of the tumor cavity, and did not see any further abnormal tissue. At this point, all blee ding was controlled with bipolar electrocautery, and the cavity was lined with Surgicel, and the wou nd was copiously irrigated using gentamicin irrigation. The dura was then closed using interrupted 4-0 Nurolon, and the dural opening had some shrinkage, so was covered with a piece of onlay DuraGen. The craniotomy flap was then plated back in place using Synthes titanium plates and screws. The w ound was copiously irrigated using bacitracin irrigation. The temporalis muscle and its fascia was closed using interrupted 3-0 Vicryl. The galea was closed using interrupted 3-0 Vicryl, and the ski n was closed using a running locking 5-0 Prolene. The hair was washed. The patient was removed fro m the [place] pins. Dr. Andres then performed a vocal cord injection. The patient was then extub ated and was transferred to the PACU in stable condition. There were no operative complications. I was scrubbed and present for the entire procedure. All sponge and needle counts were correct at th e end of the case. DRAINS: None. FLUIDS AND URINE OUTPUT: Per the anesthesia record. /[id number]/MODL
--- NOTE | 2017-02-04 17:23 | HOSPPROG ---
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 Benavides of Neurosurgery who has accepted transfer to the neurosurgical service Please call the hospital medicine service with further questions Objective: Vital Signs Temp Pulse Resp BP Pulse Ox 36.6 C 87 14 114/62 96 02/04/17 14:01 02/04/17 15:00 02/04/17 15:00 02/04/17 15:00 02/04/17 15:00 Laboratory Results 02/02/17 04:33 02/03/17 02/04/17 02/05/17 05:59 05:59 05:59 Intake Total 3646 650 2913 Output Total 486 6325 Balance 1100 -215 -115 ICD10 Worksheet Patient Problems: Problems Problem Status Onset CAD - Coronary arteriosclerosis Active History of placement of stent for coronary artery disease Active Familial combined hyperlipidemia Active Essential hypertension Active Lightheadedness Acute Pneumonia Acute Near syncope Acute Intracranial mass Acute
[2017-02-04] MEDS: DEXAMETHASONE 4 MG TAB PO SCH (17:53)
[2017-02-04] MEDS ORDERED: FAMOTIDINE 20 MG/NACL 50 ML IV SCH (21:00)
[2017-02-05] MEDS: DEXAMETHASONE 4 MG TAB PO SCH ×4 (00:04→19:24)
[2017-02-05] MEDS: niCARdipine/NACL 200 ML IV PRN (01:32)
--- NOTE | 2017-02-05 08:31 | SOAPPROG ---
SCOT Progress Note Assessment/Plan: Assessment: 72 yo M POD #1 right pterional craniotomy for resection of right temporal metastatic lesion Plan: neuro: stable, patient states this he does not want to live anymore, consider palliative care meeting post op MRI today to follow up tumor resection PT/OT/ST ok to transfer to floor after MRI with Q4 hour neuro checks on keppra on decadron please call with neuro changes discussed with Dr Benavides 02/03/17 07:41 02/05/17 08:27 Subjective: patient denies headaches, no N/V. patient states that "I don't want to live anymore." Objective: Vital Signs Temp Pulse Resp BP Pulse Ox 36.7 C 94 18 131/75 H 93 02/05/17 04:00 02/05/17 06:00 02/05/17 06:00 02/05/17 04:56 02/05/17 06:00 Laboratory Results 02/02/17 04:33 02/04/17 02/05/17 02/06/17 05:59 05:59 05:59 Intake Total 485 4151 Output Total 700 4565 Balance -215 -414 awake, alert PERRL, right facial droop ABHIJIT x 4 + light touch C/D/I ICD10 Worksheet Patient Problems: Problems Problem Status Onset Intracranial mass Acute CAD - Coronary arteriosclerosis Active Essential hypertension Active Familial combined hyperlipidemia Active History of placement of stent for coronary artery disease Active Lightheadedness Acute Near syncope Acute Pneumonia Acute
[2017-02-05] MEDS: METOPROLOL TARTRATE 50 MG TAB PO SCH ×2 (09:13→20:38)
[2017-02-05] MEDS: RAMIPRIL 5 MG CAP PO SCH (09:13)
[2017-02-05] MEDS: SENNOSIDES/DOCUSATE SODIUM TAB PO SCH ×2 (09:13→20:40)
[2017-02-05] MEDS: PANTOPRAZOLE SODIUM 40 MG TAB PO SCH ×2 (09:14→20:41)
[2017-02-05] MEDS: CHOLECALCIFEROL VIT D3 1,000 UNITS TAB PO SCH (09:14)
[2017-02-05] MEDS: levETIRAcetam 500 MG TAB PO SCH ×2 (09:14→20:41)
[2017-02-05] MEDS: oxyCODONE IR 5 MG TAB PO PRN (10:36)
[2017-02-05] MEDS: DIAZEPAM 2 MG TAB PO PRN (10:36)
[2017-02-05] MEDS ORDERED: GADOBUTROL 10 ML VIAL IVP ONE (10:57)
--- NOTE | 2017-02-05 12:14 | SOAPPROG ---
SOAP Progress Note Assessment/Plan: Assessment: 1. 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 Plan:Review MRI, pain control, discussed with 02/03/17 14:43 02/05/17 12:12 Objective: Vital Signs Temp Pulse Resp BP Pulse Ox 98.4 F 82 16 140/67 H 96 02/05/17 08:00 02/05/17 08:00 02/05/17 08:00 02/05/17 08:00 02/05/17 08:00 Laboratory Results 02/02/17 04:33 02/04/17 02/05/17 02/06/17 05:59 05:59 05:59 Intake Total 485 4151 Output Total 199 3402 150 Balance -215 -414 -150 ICD10 Worksheet Patient Problems: Problems Problem Status Onset Intracranial mass Acute CAD - Coronary arteriosclerosis Active Essential hypertension Active Familial combined hyperlipidemia Active History of placement of stent for coronary artery disease Active Lightheadedness Acute Near syncope Acute Pneumonia Acute
[2017-02-05] MEDS: fentaNYL 75 MCG PATCH TD SCH (12:26)
[2017-02-05] MEDS: traMADol 50 MG TAB PO PRN ×2 (14:28→19:24)
[2017-02-06] MEDS: DEXAMETHASONE 4 MG TAB PO SCH ×5 (00:04→23:29)
[2017-02-06] MEDS: oxyCODONE IR 5 MG TAB PO PRN ×2 (00:09→06:02)
[2017-02-06] MEDS: DIAZEPAM 2 MG TAB PO PRN (00:10)
[2017-02-06] MEDS: CHOLECALCIFEROL VIT D3 1,000 UNITS TAB PO SCH (10:06)
[2017-02-06] MEDS: SENNOSIDES/DOCUSATE SODIUM TAB PO SCH ×2 (10:06→21:01)
[2017-02-06] MEDS: RAMIPRIL 5 MG CAP PO SCH (10:06)
[2017-02-06] MEDS: traMADol 50 MG TAB PO PRN ×3 (10:06→21:06)
[2017-02-06] MEDS: METOPROLOL TARTRATE 50 MG TAB PO SCH ×2 (10:07→21:00)
[2017-02-06] MEDS: levETIRAcetam 500 MG TAB PO SCH ×2 (10:07→21:00)
[2017-02-06] MEDS: PANTOPRAZOLE SODIUM 40 MG TAB PO SCH ×2 (10:07→21:01)
[2017-02-06] MEDS: POLYETHYLENE GLYCOL 3350 17 GM PKT PO PRN (10:38)
--- NOTE | 2017-02-06 13:23 | NEUSURGPN ---
Assessment/Plan: Assessment: 72 yo M POD#2 right pterional craniotomy for resection of right temporal metastatic lesion Plan: neuro: per RN more confusion and lethargy overnight, was given Valium and 10mg Oxycodone recently, will try and limit narcotics, benzos and see if this clears some post op MRI shows good resection- Per pathology, path shows radiation necrosis PT/OT/ST ok to transfer to floor awith Q4 hour neuro checks on keppra on decadron- continue taper as ordered please call with neuro changes Patient seen by Dr. Benavides as well S: Patient resting in bed. Denies pain. Per RN, had more confusion overnight. O: VSS, NAD Alert to person, not to place or year this morning Following all commands PERRL, EOMI right facial droop- same as preop DUGGAN X4 Incision c/d/i 02/04/17 11:14 Catheter Insertion Date: 02/04/17 - Physician Discussed Patient with Dr.: Benavides Patient Seen by : [facility] Physical Exam - Vitals, I&O, Labs I and O 02/05/17 02/06/17 02/07/17 05:59 05:59 05:59 Intake Total 4151 1180 Output Total 4565 1225 Balance -414 -45 Intake: Oral (ml) 717 250 IV Intake (ml) 2050 600 IV Infused (ml) 1384 330 NS W/ 20 KCl/L 1,000 ml @ 935 330 75 mls/hr IV CONT EMMETT Rx #:[id number] niCARdipine/NACL 200 ml @ 449 Titrate IV PRN PRN Rx#: [id number] Output: Urine (ml) 4490 1225 Catheter 1740 Toilet 300 Urinal 2450 1225 Estimated Blood Loss (ml) 75 Other: Number of Voids Incontinence 1 Urinal 5 4 Vital Signs Temp Pulse Resp BP Pulse Ox 37.1 C 60 14 128/83 H 95 02/06/17 12:00 02/06/17 07:47 02/06/17 12:00 02/06/17 12:00 02/06/17 12:00 Laboratory Results 02/02/17 04:33 ICD10 Worksheet Patient Problems: Problems Problem Status Onset Intracranial mass Acute CAD - Coronary arteriosclerosis Active Essential hypertension Active Familial combined hyperlipidemia Active History of placement of stent for coronary artery disease Active Lightheadedness Acute Near syncope Acute Pneumonia Acute
--- NOTE | 2017-02-06 16:01 | SOAPPROG ---
SOAP Progress Note Assessment/Plan: Assessment: 1. 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 Plan:continue post op care, may benefit from palliative care conference, ordered 02/03/17 14:43 02/05/17 12:12 02/06/17 15:58 Subjective: Awake, not speaking very much Objective: Vital Signs Temp Pulse Resp BP Pulse Ox 97.3 F 60 20 143/67 H 97 02/06/17 15:19 02/06/17 15:19 02/06/17 15:19 02/06/17 15:19 02/06/17 15:19 Laboratory Results 02/02/17 04:33 02/05/17 02/06/17 02/07/17 05:59 05:59 05:59 Intake Total 4151 1180 Output Total 8606 6590 Balance -414 -45 ICD10 Worksheet Patient Problems: Problems Problem Status Onset Intracranial mass Acute CAD - Coronary arteriosclerosis Active Essential hypertension Active Familial combined hyperlipidemia Active History of placement of stent for coronary artery disease Active Lightheadedness Acute Near syncope Acute Pneumonia Acute
[2017-02-07] MEDS: traMADol 50 MG TAB PO PRN ×3 (01:43→21:38)
[2017-02-07] MEDS: DEXAMETHASONE 4 MG TAB PO SCH ×4 (05:18→23:47)
[2017-02-07] MEDS: ACETAMINOPHEN 325 MG TAB PO PRN (05:18)
[2017-02-07] MEDS: SENNOSIDES/DOCUSATE SODIUM TAB PO SCH ×2 (08:17→21:34)
[2017-02-07] MEDS: levETIRAcetam 500 MG TAB PO SCH ×2 (08:17→21:32)
[2017-02-07] MEDS: RAMIPRIL 5 MG CAP PO SCH (08:17)
[2017-02-07] MEDS: CHOLECALCIFEROL VIT D3 1,000 UNITS TAB PO SCH (08:18)
[2017-02-07] MEDS: METOPROLOL TARTRATE 50 MG TAB PO SCH ×2 (08:18→21:32)
[2017-02-07] MEDS: PANTOPRAZOLE SODIUM 40 MG TAB PO SCH ×2 (08:18→21:33)
[2017-02-07] MEDS: POLYETHYLENE GLYCOL 3350 17 GM PKT PO PRN (08:28)
[2017-02-07] MEDS: fentaNYL 75 MCG PATCH TD SCH (08:28)
--- NOTE | 2017-02-07 08:39 | SOAPPROG ---
SOAP Progress Note Assessment/Plan: Assessment: 72 yo M POD#3 right pterional craniotomy for resection of right temporal metastatic lesion post op MRI shows good resection- Per pathology, path shows radiation necrosis reporting some episodes of contraction of arms and legs. Discussed this with Dr Benavides who thinks these could be seizures, but not likely Plan: PT/OT/ST Q4 hour neuro checks on keppra 500 mg BID, will increase to [address] Benavides. on decadron- continue taper as ordered please call with neuro changes Discussed with Dr. Benavides 02/07/17 08:42 Subjective: In bedside chair feeding himself breakfast, no complaints. denies pain. present Objective: Vital Signs Temp Pulse Resp BP Pulse Ox 36.9 C 70 17 113/70 91 L 02/07/17 04:00 02/07/17 08:00 02/07/17 08:00 02/07/17 08:00 02/07/17 08:00 Laboratory Results 02/02/17 04:33 02/06/17 02/07/17 02/08/17 05:59 05:59 05:59 Intake Total 1180 1550 Output Total 1225 700 Balance -45 850 Neuro: DUGGAN, sens +LT right facial droop oriented to self ICD10 Worksheet Patient Problems: Problems Problem Status Onset Intracranial mass Acute CAD - Coronary arteriosclerosis Active Essential hypertension Active Familial combined hyperlipidemia Active History of placement of stent for coronary artery disease Active Lightheadedness Acute Near syncope Acute Pneumonia Acute
--- NOTE | 2017-02-07 14:43 | PDPCPN ---
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 MRI brain found to have right temporal mass with associated edema. Neurosurg consult and s/p POD #4 for removal of mass dx as radiation necrosis. Post op recovery has been slow with increasing fatigue and being nonverbal. Ulises has stated he doesn't want to continue. palliative care consulted for complex medical decision making. Met at the bedside today with Ulises and his Erin. Ulises was pretty fatigued and tired but gave us permission to speak with Erin. Erin shared Ulises's story of having met cancer and going through treatments over the past few months. She said Ulises loves to be outdoors fishing is especially important to him. This is what means quality of life to him. Erin states that he has not been able to go fishing since July and has mostly been asleep due to pain and needing medications or going to [facility] for treatment. She feels his quality of life has been declining over the past few months but more rapidly over the past 2 weeks. They feel at this time what is most important is being at home and not spending time in the hospital. Erin wants Ulises to at home and does not want him to be alone at the end. She understands the incurable nature of his illness and with the decline in performance status also that he is not able to have further treatments for his cancer at this time. She is interested in hospice care at home. Assessment: Physical: - Pain: general body - on fentanyl patch 75 mcg/hr - would limit narcotics to just oxy IR and morphine IV PRN - poor appetite: - steroids should help - general diet as tolerated - constipation - at risk while on opiates - on bowel regimen already with senna and miralax Emotional/psychological: diminished quality of life well supported by family. Advanced Care Planning: Is patient decisional?: No Code Status: DNR POA: Erin is MDPOA. Plan: [facility] meeting with patient and today at 2:30 Pm. Plan for home hospice. 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 Has 1 son lives locally. Enjoys fishing, archery, and being active. Medication list reviewed ROS: General: fatigue, weakness, weight loss ENT: negative Resp: negative GI: poor appetite : negative MS: occasional body pain from cancer Skin: right head incision Neuro: slowed responses Psych: negative Functional assessment: PPS: 30% Functional status: dependent on ADLs, IADLs Vital Signs Temp Pulse Resp BP Pulse Ox 36.9 C 51 L 15 117/69 63 L 02/07/17 12:00 02/07/17 12:00 02/07/17 12:00 02/07/17 12:00 02/07/17 12:00 Laboratory Results 02/02/17 04:33 02/06/17 02/07/17 02/08/17 05:59 05:59 05:59 Intake Total 1180 1550 Output Total 1225 700 500 Balance -45 850 -500 Physical Exam - Physical Exam General Appearance: no apparent distress, other (sleeping) Skin: normal color, warm/dry Extremities: No pedal edema Neuro/Psych: other (sleepign) ICD10 Worksheet Patient Problems: Problems Problem Status Onset CAD - Coronary arteriosclerosis Active Essential hypertension Active Familial combined hyperlipidemia Active History of placement of stent for coronary artery disease Active Intracranial mass Acute Lightheadedness Acute Near syncope Acute Palliative care encounter Acute Pneumonia Acute - ICD10 Problem Qualifiers (1) Palliative care encounter
--- NOTE | 2017-02-07 15:10 | SOAPPROG ---
SOAP Progress Note Assessment/Plan: Assessment: 1. 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 Plan:He is gong home with hospice 02/03/17 14:43 02/05/17 12:12 02/06/17 15:58 02/07/17 15:09 Subjective: Not very alert Objective: Vital Signs Temp Pulse Resp BP Pulse Ox 98.5 F 51 L 15 117/69 63 L 02/07/17 12:00 02/07/17 12:00 02/07/17 12:00 02/07/17 12:00 02/07/17 12:00 Laboratory Results 02/02/17 04:33 02/06/17 02/07/17 02/08/17 05:59 05:59 05:59 Intake Total 1180 1550 Output Total 1225 700 500 Balance -45 850 -500 ICD10 Worksheet Patient Problems: Problems Problem Status Onset Intracranial mass Acute Palliative care encounter Acute CAD - Coronary arteriosclerosis Active Essential hypertension Active Familial combined hyperlipidemia Active History of placement of stent for coronary artery disease Active Lightheadedness Acute Near syncope Acute Pneumonia Acute
[2017-02-07 20:03] VITALS: O2SAT 94
[2017-02-08] MEDS: DEXAMETHASONE 4 MG TAB PO SCH ×2 (05:42→12:04)
[2017-02-08] MEDS: RAMIPRIL 5 MG CAP PO SCH (09:17)
[2017-02-08] MEDS: levETIRAcetam 500 MG TAB PO SCH (09:18)
[2017-02-08] MEDS: SENNOSIDES/DOCUSATE SODIUM TAB PO SCH (09:18)
[2017-02-08] MEDS: CHOLECALCIFEROL VIT D3 1,000 UNITS TAB PO SCH (09:18)
[2017-02-08] MEDS: traMADol 50 MG TAB PO PRN ×2 (09:19→14:31)
[2017-02-08] MEDS: PANTOPRAZOLE SODIUM 40 MG TAB PO SCH (09:19)
[2017-02-08] MEDS: METOPROLOL TARTRATE 50 MG TAB PO SCH (09:19)
[2017-02-08] MEDS: ACETAMINOPHEN 325 MG TAB PO PRN ×2 (09:19→14:30)
--- NOTE | 2017-02-08 09:37 | SOAPPROG ---
SOAP Progress Note Assessment/Plan: Assessment: Assessment: 72 yo M POD#4 right pterional craniotomy for resection of right temporal metastatic lesion post op MRI shows good resection- Per pathology, path shows radiation necrosis Mentation better today Plan: D/C home with home hospice nursing to remove dressing before d/c decadron taper written 4mg Q12 hours x 4 days, 2mg Q12 hours x 4days 2mg daily x 3 days then stop home on fentanyl patch and tramadol for pain continue keppra 500mg BID Fu at 2 weeks for sutures 02/08/17 09:36 02/08/17 09:41 02/08/17 09:44 Subjective: Mentation better today per , ambulating to bathroom with walker, ready for home hospice today Objective: Vital Signs Temp Pulse Resp BP Pulse Ox 36.7 C 55 L 16 153/81 H 94 02/08/17 03:22 02/08/17 03:22 02/08/17 03:22 02/08/17 03:22 02/08/17 03:22 Laboratory Results 02/02/17 04:33 02/07/17 02/08/17 02/09/17 05:59 05:59 05:59 Intake Total 1550 250 Output Total 700 700 Balance 850 -450 ambulating with walker and assistance, answering questions appropriately, right facial droop DUGGAN, sens +LT right facial droop dressing intact - Pending Discharge Pending Discharge Within 24 Hours: Yes Pending Discharge Date: 02/09/17 Pending Discharge Time: 11:00 ICD10 Worksheet Patient Problems: Problems Problem Status Onset Intracranial mass Acute Palliative care encounter Acute CAD - Coronary arteriosclerosis Active Essential hypertension Active Familial combined hyperlipidemia Active History of placement of stent for coronary artery disease Active Lightheadedness Acute Near syncope Acute Pneumonia Acute
--- NOTE | 2017-02-08 13:14 | PDIAF ---
- Diagnosis Code Status: Do Not Resuscitate - Medication Management Discharge Medications: Medications to Continue on Transfer Cholecalciferol Vit D3 [Vitamin D3 (*)] 2,000 units PO DAILY 01/31/17 [Last Taken 01/31/17] Metoprolol Tartrate [Lopressor 50 mg (*)] 50 mg PO BID 01/31/17 [Last Taken 09:00] Ramipril [Altace 5mg (*)] 10 mg PO DAILY 01/31/17 [Last Taken 01/31/17] Acetaminophen [Tylenol 325mg (*)] 650 mg PO Q4HRS PRN #0 tab 02/08/17 [Last Taken Unknown] Diazepam [Valium 2 MG (*)] 2 - 4 mg PO Q6HRS PRN #30 tab 02/08/17 [Last Taken Unknown] HYDROcodone/APAP 10/325 [[place] 10/325 (*)] 1 - 2 tab PO Q6HRS PRN #60 tab [Last Taken Unknown] Ondansetron Odt [Zofran Odt 4 mg (*)] 4 mg PO Q4HRS PRN #30 tab 02/08/17 [Last Taken Unknown] Pantoprazole Sodium [Protonix 40mg (*)] 40 mg PO BID #60 tab 02/08/17 [Last Taken Unknown] Polyethylene Glycol 3350 [Miralax 17 gm (*)] 17 gm PO DAILY PRN #30 pkt [Last Taken Unknown] Sennosides/Docusate Sodium [Senokot-S] 1 - 2 tab PO BID #60 tab 02/08/17 [Last Taken Unknown] fentaNYL [Duragesic 75 MCG Patch (*)] 75 mcg TD Q72H #12 patch 02/08/17 [Last Taken Unknown] levETIRAcetam [Keppra 500 mg (*)] 500 mg PO BID #60 tab 02/08/17 [Last Taken Unknown] traMADol [Ultram 50 mg (*)] 50 mg PO TID PRN #90 tab 02/08/17 [Last Taken Unknown] Discharge Medications: Refer to the Discharge Home Medication list for PRN reason. PICC Care - Routine: N/A - Orders Services needed: Home Care, Registered Nurse Home Care Face to Face: I certify that this patient was under my care and that I had the required [id number] encounter meeting the encounter requirements on the discharge day. My findings support the fact that the patient is homebound as defined in CMS Chapter 7 Medicare Benefits Manual 30.1.1, The condition of the patient is such that there exists a normal inability to leave home and consequently, leaving home would require a considerable and taxing effort. Diet Recommendation: no restrictions on diet Diet Texture: Dysphagia 3 - Advanced - Moist, Bite-Size, Thin Liquids, Meds Whole w/Liquids, Meds Whole in Puree Additional: patient is going home with home hospice care - Follow Up Care Current Providers and Referrals: Donny Benavides MD [Medical Doctor] - Lambert Gunter MD [Primary Care Provider] - Kemal Xavier MD [Medical Doctor] -
[2017-02-08 15:42] VITALS: BP 132/74; PULSE 58; RESP 14; TEMP 97.9
[2017-02-08] MEDS ORDERED: DEXAMETHASONE 4 MG TAB PO SCH (21:00)
[2017-02-12] MEDS ORDERED: DEXAMETHASONE 2 MG TAB PO SCH (21:00)
[2017-02-16] MEDS ORDERED: DEXAMETHASONE 2 MG TAB PO SCH (09:00)
== END 2017-02-08 15:43 | disposition hospice, home (50) | DRG 25 ==
LOC: F3N 20:03 → OBSVTOIN 02-01 14:15 → F2N 02-04 10:19 → F3N 02-06 18:33
PROVIDERS: ADMIT Neurological Surgery; ATTEND Neurological Surgery
PROC: 0CJS8ZZ Inspection of Larynx, Via Natural or Artificial Opening Endoscopic (ICD-10-PCS; 2017-02-03)
PROC: 8E0WXBZ Computer Assisted Procedure of Trunk Region (ICD-10-PCS; principal; 2017-02-04 07:15)
PROC: 3E0F8GC Introduction of Other Therapeutic Substance into Respiratory Tract, Via Natural or Artificial Opening Endoscopic (ICD-10-PCS; principal; 2017-02-04 07:15)
PROC: 00B70ZZ Excision of Cerebral Hemisphere, Open Approach (ICD-10-PCS; principal; 2017-02-04 07:15)
DX: C79.31 Secondary malignant neoplasm of brain (principal); G93.6 Cerebral edema; G93.5 Compression of brain; C78.00 Secondary malignant neoplasm of unspecified lung; Z85.09 Personal history of malignant neoplasm of other digestive organs; Z92.3 Personal history of irradiation; J38.01 Paralysis of vocal cords and larynx, unilateral; I25.10 Atherosclerotic heart disease of native coronary artery without angina pectoris; Z95.1 Presence of aortocoronary bypass graft; Z95.5 Presence of coronary angioplasty implant and graft; I10 Essential (primary) hypertension; E78.5 Hyperlipidemia, unspecified
CPT/HCPCS: 92507-GN; 92523-GN; 92526-GN; 92610-GN; 96374; 97116-GP; 97162-GP; 97165-GO; 97168-GO; 97530-GO; 97535-GO; A9585; C1713; C1878; G0378; G8978-GP-CK; G8979-GP-CJ; G8987-GO-CI; G8987-GO-CL; G8988-GO-CH; G8988-GO-CJ; G8996-GN-CJ; G8997-GN-CI; G9165-GN-CJ; G9166-GN-CJ; G9167-GN-CJ; J0690; J1100; J1953; J2250; J2405; J2704; J3010